=== PATIENT | female | born 1965 | race Caucasian/White ===

== ENCOUNTER 2025-07-06 11:45 | Inpatient (IN) | payer OTHER ==
[~2025-07-06] VITALS: Ht 165.1 cm; Wt 72.6 kg
[2025-07-06 12:07] LABS: PLATELET COUNT (AUTO) 236 K/uL (179-408); RED BLOOD CELL COUNT(AUTO) 4.35 MIL/uL (3.63-4.92); RED CELL DISTRIBUTION WIDTH 14.3 % (12.3-17.7); WHITE BLOOD COUNT (AUTO) 4.5 K/uL (3.8-11.8)
[2025-07-06 12:15] VITALS: BP 146/77
[2025-07-06 12:20] LABS: CREATININE 0.8 mg/dL (0.6-1.3); SODIUM SERUM 140 mmol/L (136-145); UREA NITROGEN, BLOOD 18 mg/dL (7-18)
[2025-07-06] MEDS ORDERED: IV NORMAL SALINE 250 ML IV ONE (13:46)
[2025-07-06] MEDS ORDERED: SWABABLE VALVE TRANSFER SET EA MC ONE (13:46)
[2025-07-06] MEDS ORDERED: IOHEXOL 350 100 ML INFUS..BTL ONE (13:46)
[2025-07-06] MEDS: ASPIRIN 81 MG TAB.CHEW PO ONE (14:24)
[2025-07-06 16:25] VITALS: BP 124/51; TEMP 97.7; O2SAT 100
[2025-07-06] MEDS ORDERED: NITROGLYCERIN 0.4 MG/TAB BOTTLE SL PRN (19:30)
[2025-07-06] MEDS ORDERED: ACETAMINOPHEN 325 MG TABLET PO PRN (19:30)
[2025-07-06] MEDS ORDERED: MAGNESIUM HYDROXIDE 30 ML LIQUID UDC PO PRN (19:30)
[2025-07-06] MEDS ORDERED: MORPHINE SULFATE 2 MG/1 ML DISP.SYRIN IV PRN (19:30)
[2025-07-06] MEDS ORDERED: ONDANSETRON 4 MG/2 ML VIAL IV PRN (19:30)
[2025-07-06 19:35] VITALS: BP 111/63; TEMP 98; O2SAT 100
[2025-07-07 00:14] VITALS: BP 108/61; TEMP 97.2; O2SAT 99
[2025-07-07 05:53] VITALS: BP 107/60; TEMP 97.5; O2SAT 99
[2025-07-07] MEDS: PANTOPRAZOLE SODIUM 40 MG TABLET.DR PO SCH (06:27)
[2025-07-07 06:53] LABS: PLATELET COUNT (AUTO) 212 K/uL (179-408); RED BLOOD CELL COUNT(AUTO) 4.06 MIL/uL (3.63-4.92); RED CELL DISTRIBUTION WIDTH 13.9 % (12.3-17.7); WHITE BLOOD COUNT (AUTO) 4.5 K/uL (3.8-11.8)
[2025-07-07 07:06] LABS: CREATININE 0.8 mg/dL (0.6-1.3); SODIUM SERUM 145.0 mmol/L (136-145); UREA NITROGEN, BLOOD 14.0 mg/dL (7-18)
[2025-07-07 07:55] VITALS: BP 106/51; TEMP 97.8; O2SAT 100
[2025-07-07] MEDS: ASPIRIN EC 81 MG TABLET.DR PO SCH (08:58)
[2025-07-07] MEDS: IBUPROFEN 800 MG TABLET PO SCH (09:03)
[2025-07-07] MEDS ORDERED: IBUP-1957 PO (09:53)
[2025-07-07] MEDS ORDERED: IBUP-2314 PO (09:53)
[2025-07-07] MEDS ORDERED: IBUP-1953 PO (09:53)
[2025-07-07 12:00] VITALS: BP 110/63; TEMP 98.2; O2SAT 100
== END 2025-07-07 15:00 | disposition home or self-care (01) | DRG 207 ==
LOC: ER 11:45 → TELE3 15:40
DX: I31.9 Disease of pericardium, unspecified (principal); R79.89 Other specified abnormal findings of blood chemistry; R91.8 Other nonspecific abnormal finding of lung field; R91.1 Solitary pulmonary nodule; Z87.09 Personal history of other diseases of the respiratory system
CPT/HCPCS: 36415; 71045; 71275; 83735; 84100; 84443; 84484; 85025; 85610; 85651; 85730; 86140; 93005; 93307; A4663; G0378; Q9967